=== PATIENT | female | born 1965 | race Caucasian/White ===

== ENCOUNTER → 2020-09-23 09:15 | Outpatient (BNVA) | payer SELFPAY | PROVIDERS: PCP Nurse Practitioner Family; Visit Provider Nurse Practitioner Family | DX: Z13.6 Encounter for screening for cardiovascular disorders (principal); R55 Syncope and collapse; I25.2 Old myocardial infarction | CPT/HCPCS: 80053; 80061; 84443; 85025 ==

== ENCOUNTER 2020-11-10 18:35 | Observation (INO) | payer SELFPAY ==
[2020-11-10 18:52] VITALS: BP 117/77; PULSE 81; RESP 20; TEMP 36.9; O2SAT 100; BMI 23.1
--- NOTE | 2020-11-10 19:35 | CTR_ITS ---
PROCEDURE INFORMATION: Exam: CT Head Without Contrast Exam date and time: 11/10/2020 7:35 PM Age: 54 years old Clinical indication: Syncope and collapse; Additional info: Fall TECHNIQUE: Imaging protocol: Computed tomography of the head without contrast. Radiation optimization: All CT scans at this facility use at least one of these dose optimization techniques: automated exposure control; mA and/or kV adjustment per patient size (includes targeted exams where dose is matched to clinical indication); or iterative reconstruction. COMPARISON: No relevant prior studies available. RADIATION DOSE METRICS: Total DLP (mGy-cm): 828.66 FINDINGS: Brain: Normal. No hemorrhage. Unremarkable white matter. No mass effect. Cerebral ventricles: No ventriculomegaly. Paranasal sinuses: Visualized sinuses are unremarkable. No fluid levels. Mastoid air cells: Visualized mastoid air cells are well aerated. Bones/joints: Unremarkable. No acute fracture. Soft tissues: Unremarkable. CT/CT head wo con* [id number] IMPRESSION: Negative for intracranial hemorrhage or mass effect. Radiation Dose CTDIVOL = (mGy): DLP = 828.66 (mGy-cm)
--- NOTE | 2020-11-10 19:35 | CTR_ITS ---
PROCEDURE INFORMATION: Exam: CT Cervical Spine Without Contrast Exam date and time: 11/10/2020 7:35 PM Age: 54 years old Clinical indication: Injury or trauma; Other: Syncope with collapse; Blunt trauma; Additional info: Fall TECHNIQUE: Imaging protocol: Computed tomography images of the cervical spine without contrast. Radiation optimization: All CT scans at this facility use at least one of these dose optimization techniques: automated exposure control; mA and/or kV adjustment per patient size (includes targeted exams where dose is matched to clinical indication); or iterative reconstruction. COMPARISON: CT facial bones wo con* [id number] 11/10/2020 7:48 PM RADIATION DOSE METRICS: Total DLP (mGy-cm): 407.33 FINDINGS: Vertebrae: Grade 1 retrolisthesis of C4 relative to C3 is likely chronic and degenerative. Small defect in the anterior aspect of the left C1 vertebral foramen with smooth borders is likely chronic and degenerative in nature. C2-C3: No significant disc protrusion. No severe spinal canal stenosis. No significant neural foraminal narrowing. C3-C4: No significant disc protrusion. No severe spinal canal stenosis. No significant neural foraminal narrowing. C4-C5: No significant disc protrusion. No severe spinal canal stenosis. No significant neural foraminal narrowing. C5-C6: No significant disc protrusion. No severe spinal canal stenosis. No significant neural foraminal narrowing. C6-C7: No significant disc protrusion. No severe spinal canal stenosis. No significant neural foraminal narrowing. C7-T1: No significant disc protrusion. No severe spinal canal stenosis. No significant neural foraminal narrowing. Soft tissues: Poorly characterized diffuse enlargement of the left thyroid gland measuring up to 3.4 cm concerning for an underlying mass with some rightward deviation of the trachea. Lungs: Lung apices are normal. CT/CT cervical spin wo con* [id number] IMPRESSION: 1. Negative for acute fracture or dislocation. 2. Grade 1 retrolisthesis of C4 relative to C3 is likely chronic and degenerative. 3. Poorly characterized diffuse enlargement of the left thyroid gland measuring up to 3.4 cm concerning for an underlying mass with some rightward deviation of the trachea. Further evaluation with non-emergent thyroid ultrasound is recommended. 4. Small defect in the anterior aspect of the left C1 vertebral foramen with smooth borders is likely chronic and degenerative in nature. Radiation Dose CTDIVOL = (mGy): DLP = 407.33 (mGy-cm)
--- NOTE | 2020-11-10 19:35 | CTR_ITS ---
PROCEDURE INFORMATION: Exam: CT Maxillofacial Without Contrast Exam date and time: 11/10/2020 7:35 PM Age: 54 years old Clinical indication: Injury or trauma; Other: Syncope and collapse; Blunt trauma (contusions or hematomas); Orbit/periorbital; Left; Additional info: Fall TECHNIQUE: Imaging protocol: Computed tomography images of the face without contrast. Radiation optimization: All CT scans at this facility use at least one of these dose optimization techniques: automated exposure control; mA and/or kV adjustment per patient size (includes targeted exams where dose is matched to clinical indication); or iterative reconstruction. COMPARISON: CT head wo con* [id number] 11/10/2020 7:46 PM RADIATION DOSE METRICS: Total DLP (mGy-cm): 683.67 FINDINGS: Orbital cavity: Orbits are normal. Globes are unremarkable. Bones/joints: No acute fracture. Paranasal sinuses: Normal. No air-fluid levels. Soft tissues: Unremarkable. CT/CT facial bones wo con* [id number] IMPRESSION: Negative for fracture or dislocation Radiation Dose CTDIVOL = (mGy): DLP = 683.67 (mGy-cm)
--- NOTE | 2020-11-10 19:39 | XRR_ITS ---
PROCEDURE INFORMATION: Exam: XR Chest Exam date and time: 11/10/2020 7:39 PM Age: 54 years old Clinical indication: Other: Syncope TECHNIQUE: Imaging protocol: XR of the chest. Views: 1 view. COMPARISON: CT abdomen pelvis w con* [id number] 11/22/2017 2:52 PM FINDINGS: Lungs: Hyperinflated lungs. No consolidation. Pleural spaces: Unremarkable. No pleural effusion. No pneumothorax. Heart/Mediastinum: Unremarkable. No cardiomegaly. Bones/joints: Unremarkable. XR/XR chest 1V portable [id number] IMPRESSION: No acute findings.
--- NOTE | 2020-11-10 19:41 | ED_ITS ---
Documented by User: Ramesh Chavez MD 11/10/20 22:16 HPI - Altered Mental Status General: Chief Complaint: Altered Mental Status Stated Complaint: head injury Time Seen by Provider: 11/10/20 19:33 History of Present Illness: HPI narrative: 54-year-old female history of CAD presents due to a forehead laceration after syncopal episode. Denies any prodrome. Denies any chest pain shortness of breath. Does report headache after the event due to her hitting her head but denies any pain in her head prior to the event. Does report some neck pain. Denies any vision change or focal numbness weakness or tingling. Denies any hearing change. States she has had previous syncopal episodes. Review of Systems Narrative: - CONSTITUTIONAL: Denies weight loss, fever and chills. - HEENT: Denies changes in vision and hearing. - RESPIRATORY: Denies SOB and cough. - CV: Denies palpitations and CP. - GI: Denies abdominal pain, nausea, vomiting and diarrhea. - : Denies dysuria and urinary frequency. - MSK: Denies myalgia and joint pain. - SKIN: Denies rash and pruritus. - NEUROLOGICAL: As above - PSYCHIATRIC: Denies suicidal ideation PFSH ED PFSH: Family History Family/Other Diabetes Social History Smoking and tobacco status: never smoked Second hand smoke exposure: No Smoking risk assessment/counseling performed?: Yes Desire information about alcohol rehabilitation?: No Counseling given: Yes Desire information about substance/drug rehabilitation?: No Counseling given: Yes Adopted: No Caregiver/support person: No Lives independently: Yes Household members: friend(s) Housing: House Marital status: Number of children: 2 Highest education level completed: GED or Equivalent service: No Current occupational status: unemployed Pets and animals: No History of recent travel: No Physical Exam Narrative: EXAM NARRATIVE: - GENERAL: Alert and oriented x 3. No acute distress. Well-nourished. - EYES: EOMI. Anicteric. - HENT: Frontal and periorbital ecchymosis, 2 cm laceration over the forehead along the nasal bridge. No signs of basal skull fracture, no nasal septal hematoma, no C-spine tenderness. Moist mucous membranes. No scleral icterus. No cervical lymphadenopathy. - LUNGS: Clear to auscultation bilaterally. No accessory muscle use. Equal lung sounds bilaterally. No respiratory distress. - CARDIOVASCULAR: Regular rate and rhythm. No murmur. No JVD. - ABDOMEN: Soft, non-tender and non-distended. Negative CVA tenderness bilaterally, no rebound or guarding, negative Borges sign. No palpable masses. - EXTREMITIES: No edema. Non-tender. - SKIN: No rashes or lesions. Warm. - NEUROLOGIC: No meningismus or focal neurological deficits. CN II-XII grossly intact. - PSYCHIATRIC: Cooperative. Appropriate mood and affect. Course Vital Signs: Vital signs: Vital Signs Temperature 98.4 F 11/10/20 18:52 Pulse Rate 72 11/10/20 20:20 Respiratory Rate 20 H 11/10/20 18:52 Blood Pressure 136/89 11/10/20 20:20 Pulse Oximetry 100 11/10/20 20:20 MDM - Altered Mental Status MDM Narrative: Medical decision making narrative: 54-year-old female with history of CAD presents due to a syncopal episode. She hit her head on ice cream machine. Does have a small facial laceration which was repaired using Dermabond. CT scan of the head C-spine and facial bones not revealing acute fracture dislocation intracranial hemorrhage or other acute abnormality. X-ray of the chest is unremarkable. EKG does reveal Q waves and signs of remote ischemia with no sign of acute ischemia. However she states that she has had several syncopal episodes recently. Remainder of lab work is unremarkable except for an elevated D-dimer. CT is pending. Troponins are unremarkable. However due to repeat syncopal episode I do believe she would benefit from admission for syncope work-up. Remainder of lab work and imaging reviewed. Discussed with hospitalist and they agreed patient would benefit from admission. Patient admitted in stable condition. Further evaluation management per hospitalist team. Lab Data: Labs: Lab Results 11/10/20 11/10/20 11/10/20 20:10 20:10 20:10 WBC 5.2 10^3/uL 10^3/ uL (4.0-10.0) RBC 4.58 10^6/uL 10^6 /uL (4.1-5.3) Hgb 13.5 g/dL g/dL (11.5-15.3) Hct 42.5 % % (37.0-47.0) MCV 92.8 fl fl (81-99) MCH 29.5 pg pg (28.0-34.0) MCHC 31.8 g/dL g/dL (30.0-36.0) RDW 13.2 % % (12.1-15.1) Plt Count 127 10^3/cmm L 10 ^3/cmm (130-400) MPV 10.8 fL H fL (7.4-10.4) Neut % (Auto) 68.1 % % Lymph % (Auto) 24.6 % % [place] % (Auto) 5.0 % % Eos % (Auto) 1.7 % % Baso % (Auto) 0.4 % % Neut # (Auto) 3.57 10^3/uL 10^3 /uL (1.8-7.7) Lymph # (Auto) 1.3 10^3/uL 10^3/ uL (0.8-4.8) [place] # (Auto) 0.3 10^3/uL 10^3/ uL (0.2-0.9) Eos # (Auto) 0.1 10^3/uL 10^3/ uL (0.0-0.8) Baso # (Auto) 0.0 10^3/uL 10^3/ uL (0.0-0.1) Nucleated RBC % (a uto) 0 % % Nucleated RBCs # 0.0 /100WBC /100W BC PT 14.40 SECONDS SEC ONDS (12.1-14.9) INR 1.08 (0.8-1.2) APTT 26.3 SECONDS SECO NDS (23.9-36.7) D-Dimer 1.03 ug/mIFEU H u g/mIFEU (0-0.59) Sodium 139 mmol/L mmol/L (136-145) Potassium 3.7 mmol/L mmol/L (3.5-5.1) Chloride 101 mmol/L mmol/L (98-107) Carbon Dioxide 25 mmol/L mmol/L (22-29) Anion Gap 16.7 (5-19) BUN 7 mg/dL mg/dL (6-20) Creatinine 0.6 mg/dL mg/dL (0.5-0.9) GFR Calculation 103.8 mL/min mL/m in (90-130) Glucose 81 mg/dL mg/dL (65-115) Calculated Osmolal ity 285 mOsm/kg mOsm/ kg (285-295) Calcium 9.4 mg/dL mg/dL (8.5-10.5) Total Bilirubin 0.4 mg/dL mg/dL (0.15-1.2) AST 16 U/L U/L (0-32) ALT 12 U/L U/L (0-33) Alkaline Phosphata se 72 IU/L IU/L (35-105) Troponin T Baselin e NT-Pro-B Natriuret Pep 99 pg/mL pg/mL (0-125) Total Protein 7.0 g/dL g/dL (6.6-8.7) Albumin 4.2 g/dL g/dL (3.5-5.2) Globulin 2.8 g/dL g/dL (1.3-4.6) TSH 0.70 uIU/mL uIU/m L (0.27-4.20) 11/10/20 20:10 WBC RBC Hgb Hct MCV MCH MCHC RDW Plt Count MPV Neut % (Auto) Lymph % (Auto) [place] % (Auto) Eos % (Auto) Baso % (Auto) Neut # (Auto) Lymph # (Auto) [place] # (Auto) Eos # (Auto) Baso # (Auto) Nucleated RBC % (a uto) Nucleated RBCs # PT INR APTT D-Dimer Sodium Potassium Chloride Carbon Dioxide Anion Gap BUN Creatinine GFR Calculation Glucose Calculated Osmolal ity Calcium Total Bilirubin AST ALT Alkaline Phosphata se Troponin T Baselin e 8 ng/L ng/L (0-10) NT-Pro-B Natriuret Pep Total Protein Albumin Globulin TSH EKG Data^: EKG 1: Other EKG comments: Sinus rhythm, rate of 65, there are anterior T wave inversions and Q waves, likely representing remote ischemia with no sign of acute ischemia or other acute abnormality. 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 Fwd Documented by User: MARCY Mahmood 11/10/20 20:14 HPI - Altered Mental Status General: Chief Complaint: Altered Mental Status Stated Complaint: head injury Time Seen by Provider: 11/10/20 19:33 PFSH ED PFSH: Family History Family/Other Diabetes Social History Smoking and tobacco status: never smoked Second hand smoke exposure: No Smoking risk assessment/counseling performed?: Yes Desire information about alcohol rehabilitation?: No Counseling given: Yes Desire information about substance/drug rehabilitation?: No Counseling given: Yes Adopted: No Caregiver/support person: No Lives independently: Yes Household members: friend(s) Housing: House Marital status: Number of children: 2 Highest education level completed: GED or Equivalent service: No Current occupational status: unemployed Pets and animals: No History of recent travel: No Procedures Laceration Laceration 1: Site: face Size (cm): 2.5 Description: irregular Depth: simple, single layer Pre-repair: wound explored and irrigated extensively Skin layer closed with: other (skin adhesive) Course Vital Signs: Vital signs: Vital Signs Temperature 98.4 F 11/10/20 18:52 Pulse Rate 72 11/10/20 20:20 Respiratory Rate 20 H 11/10/20 18:52 Blood Pressure 136/89 11/10/20 20:20 Pulse Oximetry 100 11/10/20 20:20 MDM - Altered Mental Status Lab Data: Labs: Lab Results 11/10/20 11/10/20 11/10/20 20:10 20:10 20:10 WBC 5.2 10^3/uL 10^3/ uL (4.0-10.0) RBC 4.58 10^6/uL 10^6 /uL (4.1-5.3) Hgb 13.5 g/dL g/dL (11.5-15.3) Hct 42.5 % % (37.0-47.0) MCV 92.8 fl fl (81-99) MCH 29.5 pg pg (28.0-34.0) MCHC 31.8 g/dL g/dL (30.0-36.0) RDW 13.2 % % (12.1-15.1) Plt Count 127 10^3/cmm L 10 ^3/cmm (130-400) MPV 10.8 fL H fL (7.4-10.4) Neut % (Auto) 68.1 % % Lymph % (Auto) 24.6 % % [place] % (Auto) 5.0 % % Eos % (Auto) 1.7 % % Baso % (Auto) 0.4 % % Neut # (Auto) 3.57 10^3/uL 10^3 /uL (1.8-7.7) Lymph # (Auto) 1.3 10^3/uL 10^3/ uL (0.8-4.8) [place] # (Auto) 0.3 10^3/uL 10^3/ uL (0.2-0.9) Eos # (Auto) 0.1 10^3/uL 10^3/ uL (0.0-0.8) Baso # (Auto) 0.0 10^3/uL 10^3/ uL (0.0-0.1) Nucleated RBC % (a uto) 0 % % Nucleated RBCs # 0.0 /100WBC /100W BC PT 14.40 SECONDS SEC ONDS (12.1-14.9) INR 1.08 (0.8-1.2) APTT 26.3 SECONDS SECO NDS (23.9-36.7) D-Dimer 1.03 ug/mIFEU H u g/mIFEU (0-0.59) Sodium 139 mmol/L mmol/L (136-145) Potassium 3.7 mmol/L mmol/L (3.5-5.1) Chloride 101 mmol/L mmol/L (98-107) Carbon Dioxide 25 mmol/L mmol/L (22-29) Anion Gap 16.7 (5-19) BUN 7 mg/dL mg/dL (6-20) Creatinine 0.6 mg/dL mg/dL (0.5-0.9) GFR Calculation 103.8 mL/min mL/m in (90-130) Glucose 81 mg/dL mg/dL (65-115) Calculated Osmolal ity 285 mOsm/kg mOsm/ kg (285-295) Calcium 9.4 mg/dL mg/dL (8.5-10.5) Total Bilirubin 0.4 mg/dL mg/dL (0.15-1.2) AST 16 U/L U/L (0-32) ALT 12 U/L U/L (0-33) Alkaline Phosphata se 72 IU/L IU/L (35-105) Troponin T Baselin e NT-Pro-B Natriuret Pep 99 pg/mL pg/mL (0-125) Total Protein 7.0 g/dL g/dL (6.6-8.7) Albumin 4.2 g/dL g/dL (3.5-5.2) Globulin 2.8 g/dL g/dL (1.3-4.6) TSH 0.70 uIU/mL uIU/m L (0.27-4.20) 11/10/20 20:10 WBC RBC Hgb Hct MCV MCH MCHC RDW Plt Count MPV Neut % (Auto) Lymph % (Auto) [place] % (Auto) Eos % (Auto) Baso % (Auto) Neut # (Auto) Lymph # (Auto) [place] # (Auto) Eos # (Auto) Baso # (Auto) Nucleated RBC % (a uto) Nucleated RBCs # PT INR APTT D-Dimer Sodium Potassium Chloride Carbon Dioxide Anion Gap BUN Creatinine GFR Calculation Glucose Calculated Osmolal ity Calcium Total Bilirubin AST ALT Alkaline Phosphata se Troponin T Baselin e 8 ng/L ng/L (0-10) NT-Pro-B Natriuret Pep Total Protein Albumin Globulin TSH Discharge Plan Discharge Prescriptions: No Action paroxetine HCl 20 mg tablet 20 mg PO .bedtime RF: 0 prazosin 1 mg capsule 1 mg PO .bedtime RF: 0 mirtazapine 30 mg tablet 30 mg PO DAILY RF: 0 potassium chloride [Klor-Con M20] 20 mEq tablet,ER particles/crystals 20 meq PO DAILY Qty: 30 RF: 0 Coding Level of Care Code ED 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
[2020-11-10] MEDS: tetanus-diphtheria tox (adult) 0.5 mL SDV IM (20:00)
[2020-11-10] MEDS: HYDROcodone-acetaminophen 5-325 mg Tablet 1 TAB PO (20:02)
[2020-11-10 20:19] LABS: Basophils % 0.4 %; Eosinophils # 0.1 10^3/uL (0.0-0.8); Eosinophils % 1.7 %; Hematocrit 42.5 % (37.0-47.0); Hemoglobin 13.5 g/dL (11.5-15.3); Lymphocytes # 1.3 10^3/uL (0.8-4.8); Lymphocytes % 24.6 %; Mean Corpuscular HGB Conc 31.8 g/dL (30.0-36.0); Mean Corpuscular Hemoglobin 29.5 pg (28.0-34.0); Mean Corpuscular Volume 92.8 fl (81-99); Mean Platelet Volume 10.8 fL (7.4-10.4); Monocytes # 0.3 10^3/uL (0.2-0.9); Neutrophils # 3.57 10^3/uL (1.8-7.7); Neutrophils % 68.1 %; Nucleated Red Blood Cells % 0 %; Platelet Count 127 10^3/cmm (130-400); Red Blood Count 4.58 10^6/uL (4.1-5.3); Red Cell Distribution Width 13.2 % (12.1-15.1); White Blood Count 5.2 10^3/uL (4.0-10.0)
[2020-11-10 20:20] VITALS: BP 136/89; PULSE 72; O2SAT 100
[2020-11-10 20:42] LABS: INR 1.08 (0.8-1.2)
[2020-11-10 20:43] LABS: Partial Thromboplastin Time 26.3 SECONDS (23.9-36.7)
[2020-11-10 20:45] LABS: D Dimer 1.03 ug/mIFEU (0-0.59)
[2020-11-10 20:48] LABS: Troponin(5th) Baseline 8 ng/L (0-10)
[2020-11-10 20:55] LABS: Alanine Aminotransferase 12 U/L (0-33); Albumin Level 4.2 g/dL (3.5-5.2); Alkaline Phosphatase 72 IU/L (35-105); Anion Gap 16.7 (5-19); Aspartate Amino Transferase 16 U/L (0-32); Blood Urea Nitrogen 7 mg/dL (6-20); Calcium 9.4 mg/dL (8.5-10.5); Carbon Dioxide 25 mmol/L (22-29); Chloride 101 mmol/L (98-107); Globulin 2.8 g/dL (1.3-4.6); Glomerular Filtration Rate 103.8 mL/min (90-130); Glucose 81 mg/dL (65-115); NT Pro B Type Natriuretic Pept 99 pg/mL (0-125); Osmolality Calculated 285 mOsm/kg (285-295); Potassium 3.7 mmol/L (3.5-5.1); Sodium 139 mmol/L (136-145); Total Bilirubin 0.4 mg/dL (0.15-1.2)
--- NOTE | 2020-11-10 21:00 | CTR_ITS ---
PROCEDURE INFORMATION: Exam: CTA Chest With Contrast Exam date and time: 11/10/2020 9:00 PM Age: 54 years old Clinical indication: Abnormal findings; Abnormal diagnostic tests; Elevated d-dimer; Patient HX: Syncope and collapse today. Left eye hematoma; Additional info: Pe TECHNIQUE: Imaging protocol: Computed tomographic angiography of the chest with contrast. 3D rendering (Not supervised by radiologist): MIP and/or 3D reconstructed images were created by the technologist. Radiation optimization: All CT scans at this facility use at least one of these dose optimization techniques: automated exposure control; mA and/or kV adjustment per patient size (includes targeted exams where dose is matched to clinical indication); or iterative reconstruction. Contrast material: OMNI 350; Contrast volume: 76 ml; Contrast route: INTRAVENOUS (IV); COMPARISON: No relevant prior studies available. RADIATION DOSE METRICS: Total DLP (mGy-cm): 548.7 FINDINGS: Pulmonary arteries: No definite filling defect to suggest the diagnosis of acute pulmonary embolus. Aorta: No evidence of thoracic aortic dissection or focal aneurysm. Thyroid: Enlargement of the thyroid gland, especially the left lobe which measures up to 5-6 cm in diameter. The left lobe extends into a retrosternal position. Inhomogeneous appearance of the thyroid gland, with several small calcifications present. Multiple thyroid nodules are likely present, possibly measuring up to 15-20 mm. Non-emergent ultrasound could be useful for further evaluation, as an initial step to evaluate for possible malignancy. Lungs: No significant parenchymal lung opacity or mass. Pleural spaces: No pleural fluid. Heart: Mild cardiomegaly. Mediastinal space: No evidence for pneumomediastinum or pneumothorax. There may be some mucosal/wall thickening involving the lower esophagus. This is nonspecific, but could represent evidence for esophagitis. Lymph nodes: Small calcified lymph nodes in the right hilar and right subcarinal region. There are several borderline prominent lymph nodes in the upper left mediastinum, largest measures around 10-12 mm. Upper abdomen: Numerous calcified granulomas within the spleen. Slightly lobular liver margins might raise suspicion for cirrhosis. Please correlate clinically. Images that include the upper abdomen otherwise appear essentially unremarkable for age. Bones/joints: Mild to moderate degenerative disc changes throughout the thoracic spine. Soft tissues: No significant acute finding. CT/CT angio chest PE protcl [id number] IMPRESSION: 1. No evidence of acute pulmonary embolus. 2. No evidence of thoracic aortic dissection or focal aneurysm. 3. Essentially clear lungs, no pleural fluid. 4. Possibly some thickening of the lower esophagus, see above discussion. 5. Prominent enlargement of the left lobe of the thyroid gland, see additional details/discussion above 6. Other findings discussed above. COMMENTS: Consistent with the [employer]'s Incidental Findings Committee white paper (J Am Sarah Radiol 2015): In patients aged 35 years and older with an incidental thyroid nodule equal to or greater than 1.[address], MRI or extrathyroidal US, further evaluation with dedicated thyroid US is recommended for patients with normal life expectancy and without comorbidities. For smaller nodules without suspicious features, no further evaluation or follow up is recommended. Radiation Dose CTDIVOL = (mGy): DLP = 548.7 (mGy-cm)
--- NOTE | 2020-11-10 21:38 | ECG_ITS ---
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[id number] Requested By: Ramesh Chavez Order Number: [id number] Reading MD: HELLEN AGUIRRE Measurements Intervals [place] Rate: 65 P: 18 KS: 169 QRS: -34 QRSD: 77 T: 23 QT: 367 QTc: 382 Interpretive Statements SINUS RHYTHM LEFT AXIS DEVIATION [QRS AXIS < -30] LOW QRS VOLTAGE IN PRECORDIAL LEADS [QRS DEFLECTION < 1.0 mV IN CHEST LEADS] POSSIBLE ANTERIOR MYOCARDIAL INFARCTION , OF INDETERMINATE AGE [30 ms Q WAVE IN V3/V4, OR R < 0.2 mV IN V4] Compared to ECG 11/22/2017 21:13:29 Left-axis deviation now present Myocardial infarct finding still present Electronically Signed On 11-11-2020 20:04:04 CDT by HELLEN AGUIRRE [id number]
[2020-11-10] MEDS: iohexol 350 mg/mL 100 mL Btl IV (22:19)
[2020-11-10 22:28] VITALS: PULSE 67; O2SAT 99
[2020-11-10 23:13] LABS: Troponin 5 2HR 6.41 ng/L (0-10)
[2020-11-10 23:14] LABS: Troponin 5 2HR Delta -1.59 ABS# (0-10)
--- NOTE | 2020-11-10 23:32 | P.HP_ITS ---
Providers/Chief Complaint Admitting Physician: Lorena Perdomo MD Primary Care Provider: None Chief Complaint: head injury History of Present Illness Cassie Thompson is a 54 year old female who presented to the emergency room after a syncopal episode while at work. She works at the [employer] in [place]. She was standing near the ice cream machine when she recalls becoming dizzy. Next thing she knows she came to on the floor. She had hit her head on the ice cream machine. EMS was called and evaluated her. She came in by private vehicle. She had a laceration to her forehead. It was cleaned and glued in the emergency room. She does not recall any other preceding symptoms besides the dizziness. She denies any position change right before becoming dizzy. No reports of any chest pain. No numbness or tingling, no vision changes, no speech changes. No reported abnormal movements. No loss of bowel or bladder function. She did lose consciousness but it sounds like it was just for short period of time. She has not had any nausea or vomiting. She does complain of a headache. She reports she ate before she went to work and that she had sampled an ice cream along with another colleague an hour or so before this event. No reported low blood sugar at the scene. Work-up in the emergency room revealed nonspecific EKG changes and enlargement of the left lobe of the thyroid but was otherwise unremarkable. She has a brother and a sister who in her sleep. Both were older, her brother was mid 60s and presumably had a heart attack. She herself has no history of coronary artery disease, hypertension, hyperlipidemia, diabetes but admits that she does not go to the doctor regularly. She does not have a primary care provider. She has had some palpitations at times but attributes that to anxiety. Last week at work had an episode of some mild dizziness with position changes that did not result in syncope. In September she had an episode in which she woke up in the middle the night on the floor and does not know what happened. She remembers getting up to go to the bathroom, using the bathroom and apparently never made it back to her bed. She currently denies other episodes of syncope. She has never had any type of work-up for such. She was seen at the clinic in [place] after the prior episode of waking up having apparently had an episode of loss of consciousness during the night. At that time symptoms were attributed to medications. She had previously been prescribed prazosin, Paxil, potassium and mirtazapine. She reports not taking these medications since around the time of that visit. She was referred to cardiology for further evaluation due to several episodes of syncope described at that time which she now denies. She contacted the clinic but did not keep the appointment due to concerns over cost. She has continued to have issues with depression and anxiety due to excessive life stressors but she has been trying to get herself back on her feet. She started her job at [employer] a couple of weeks ago and is working on trying to find a place of her own to live. She is currently staying with a friend. Denies any alcohol, tobacco or drug use. No recent fever or chills. No upper respiratory symptoms. No cough. No GI symptoms. No urinary symptoms. She occasionally has numbness in her fingertips but denies any other neurological symptoms. She received Covid vaccination, 2 dose series last spring. Review of Systems Const: Denies: fever(s) or chills Eyes: Reports: eye discomfort (Since event pain around the eye but not the eye itself); Denies: change in vision ENMT: Denies: throat pain or nasal congestion Card: Denies: chest pain, palpitations or edema Resp: Denies: dyspnea, productive cough or non-productive cough GI: Denies: abdominal pain, nausea, vomiting, diarrhea or constipation : Denies: difficulty voiding Musc: Reports: neck pain (From acute event today) Skin/Breast: Denies: rash or sores Neuro: Reports: headache(s) and dizziness (Prior to episode today and once last week as described); Denies: numbness in extremities, weakness in extremities, sensory changes, difficulty walking, Slurred speech present or involuntary movements Psych: Reports: anxiety and depression; Denies: suicidal ideation Endo: Reports: cold intolerance Dirk/Lymph: Denies: easy bruising or easy bleeding Medications/Allergies Home Medications Medication Instructions Recorded Confirmed Last Taken Type acetaminophen 650 mg PO QID PRN 11/11/20 11/11/20 11/08/20 History Allergies Allergy/AdvReac Type Severity Reaction Status Date / Time No Known Allergies Allergy Verified 10/06/20 09:10 PFSH Acute PFSH: Medical History (Updated 11/11/20 @ 01:34 by Lorena Perdomo MD) Anxiety History of depression History of skin cancer left chest, type unknown, removed History of stress test (~2016) No significant coronary ischemia identified Surgical History (Updated 11/11/20 @ 00:47 by Lorena Perdomo MD) Hx of tubal ligation Family History (Updated 11/11/20 @ 01:25 by Lorena Perdomo MD) Family/Other Diabetes CAD (coronary artery disease) Mother CAD (coronary artery disease) Brother CAD (coronary artery disease) Sudden in his sleep, mid 60s Sister Sudden in her sleep Social History (Updated 11/11/20 @ 01:23 by Lorena Perdomo MD) Smoking and tobacco status: never smoked Second hand smoke exposure: No Alcohol intake: former Substance/Drug Use: never Adopted: No Caregiver/support person: No Lives independently: Yes Household members: friend(s) Housing: House Marital status: Number of children: 2 Highest education level completed: GED or Equivalent service: No Current occupational status: employed Pets and animals: No History of recent travel: No Financial difficulty paying for basics: Very Hard Additional social history: Currently under probation, was incarcerated for 18 months released last year Vitals/I&O/Wt Last Vital Signs Temp 98.4 F 11/10/20 18:52 Pulse 67 11/10/20 22:28 Resp 20 H 11/10/20 18:52 BP 136/89 11/10/20 20:20 Pulse Ox 99 11/10/20 22:28 Weight last 48 hrs Weight 67.132 kg Physical Exam Narrative: EXAM NARRATIVE: Constitutional: Awake and alert, cooperative HEENT: Close laceration noted between the eyes on the frontal bone approximately 2-1/2 cm sealed with skin adhesive, mild surrounding bruising and erythema as well as some edema. Right periorbital area particularly below the eye is edematous and ecchymotic. There are scleral hemorrhages in the lower kiersten sphere. Globe moves freely without any pain demonstrated although region is tender to touch. Neck: Tender but supple Respiratory: Clear to auscultation bilaterally Cardiovascular: Regular rate and rhythm, no murmurs or rubs, 2+ pulses x4 Abdomen: Soft, nontender, positive bowel sounds Extremities: No pitting edema or acute synovitis, no calf tenderness Skin: Other than the bruising to face no other acute injuries noted, tattoo noted to ankle Neuro: Speech clear, extraocular movements are intact, pupils are equally reac tive, no photophobia, handgrip is equal, strength equal of both feet, gait not currently assessed, no dizziness elicited with arising from a supine to seated position or with head movements, no abnormal movements Psych: Normal affect, worried about her job given that this happened, admits to anxiety and depression being a issue for her but denies any suicidal thoughts and able to talk about the things that she has been doing to try to help herself, not able to recall information (specific timeframes, specific number of events, names of medications) for some questions but history otherwise obtainable from her Data : 11/10/20 20:10 11/10/20 20:10 Other Labs: Laboratory Results WBC 5.2 10^3/uL (4.0-10.0) 11/10/20 20:10 RBC 4.58 10^6/uL (4.1-5.3) 11/10/20 20:10 Hgb 13.5 g/dL (11.5-15.3) 11/10/20 20:10 Hct 42.5 % (37.0-47.0) 11/10/20 20:10 MCV 92.8 fl (81-99) 11/10/20 20:10 MCH 29.5 pg (28.0-34.0) 11/10/20 20:10 MCHC 31.8 g/dL (30.0-36.0) 11/10/20 20:10 RDW 13.2 % (12.1-15.1) 11/10/20 20:10 Plt Count 127 10^3/cmm (130-400) L 11/10/20 20:10 MPV 10.8 fL (7.4-10.4) H 11/10/20 20:10 Neut % (Auto) 68.1 % 11/10/20 20:10 Lymph % (Auto) 24.6 % 11/10/20 20:10 Flagler % (Auto) 5.0 % 11/10/20 20:10 Eos % (Auto) 1.7 % 11/10/20 20:10 Baso % (Auto) 0.4 % 11/10/20 20:10 Neut # (Auto) 3.57 10^3/uL (1.8-7.7) 11/10/20 20:10 Lymph # (Auto) 1.3 10^3/uL (0.8-4.8) 11/10/20 20:10 Flagler # (Auto) 0.3 10^3/uL (0.2-0.9) 11/10/20 20:10 Eos # (Auto) 0.1 10^3/uL (0.0-0.8) 11/10/20 20:10 Baso # (Auto) 0.0 10^3/uL (0.0-0.1) 11/10/20 20:10 Nucleated RBC % (auto) 0 % 11/10/20 20:10 Nucleated RBCs # 0.0 /100WBC 11/10/20 20:10 PT 14.40 SECONDS (12.1-14.9) 11/10/20 20:10 INR 1.08 (0.8-1.2) 11/10/20 20:10 APTT 26.3 SECONDS (23.9-36.7) 11/10/20 20:10 D-Dimer 1.03 ug/mIFEU (0-0.59) H 11/10/20 20:10 Sodium 139 mmol/L (136-145) 11/10/20 20:10 Potassium 3.7 mmol/L (3.5-5.1) 11/10/20 20:10 Chloride 101 mmol/L (98-107) 11/10/20 20:10 Carbon Dioxide 25 mmol/L (22-29) 11/10/20 20:10 Anion Gap 16.7 (5-19) 11/10/20 20:10 BUN 7 mg/dL (6-20) 11/10/20 20:10 Creatinine 0.6 mg/dL (0.5-0.9) 11/10/20 20:10 GFR Calculation 103.8 mL/min (90-130) 11/10/20 20:10 Glucose 81 mg/dL (65-115) 11/10/20 20:10 Calculated Osmolality 285 mOsm/kg (285-295) 11/10/20 20:10 Calcium 9.4 mg/dL (8.5-10.5) 11/10/20 20:10 Total Bilirubin 0.4 mg/dL (0.15-1.2) 11/10/20 20:10 AST 16 U/L (0-32) 11/10/20 20:10 ALT 12 U/L (0-33) 11/10/20 20:10 Alkaline Phosphatase 72 IU/L (35-105) 11/10/20 20:10 Troponin T Baseline 8 ng/L (0-10) 11/10/20 20:10 Troponin T 120 Minute 6.41 ng/L (0-10) 11/10/20 22:43 Delta Troponin T -1.59 ABS# (0-10) L 11/10/20 22:43 NT-Pro-B Natriuret Pep 99 pg/mL (0-125) 11/10/20 20:10 Total Protein 7.0 g/dL (6.6-8.7) 11/10/20 20:10 Albumin 4.2 g/dL (3.5-5.2) 11/10/20 20:10 Globulin 2.8 g/dL (1.3-4.6) 11/10/20 20:10 TSH 0.70 uIU/mL (0.27-4.20) 11/10/20 20:[address] 11/10/20 19:35 IMPRESSION: 1. Negative for acute fracture or dislocation. 2. Grade 1 retrolisthesis of C4 relative to C3 is likely chronic and degenerative. 3. Poorly characterized diffuse enlargement of the left thyroid gland measuring up to 3.4 cm concerning for an underlying mass with some rightward deviation of the trachea. Further evaluation with non-emergent thyroid ultrasound is recommended. 4. Small defect in the anterior aspect of the left C1 vertebral foramen with smooth borders is likely chronic and degenerative in nature. Radiation Dose CTDIVOL = (mGy): DLP = 407.33 (mGy-cm) Face CT 11/10/20 19:35 IMPRESSION: Negative for fracture or dislocation Radiation Dose CTDIVOL = (mGy): DLP = 683.67 (mGy-cm) Head CT 11/10/20 19:35 IMPRESSION: Negative for intracranial hemorrhage or mass effect. Radiation Dose CTDIVOL = (mGy): DLP = 828.66 (mGy-cm) Chest X-Ray 11/10/20 19:39 IMPRESSION: No acute findings. CTA Chest 11/10/20 21:00 FINDINGS: Pulmonary arteries: No definite filling defect to suggest the diagnosis of acute pulmonary embolus. Aorta: No evidence of thoracic aortic dissection or focal aneurysm. Thyroid: Enlargement of the thyroid gland, especially the left lobe which measures up to 5-6 cm in diameter. The left lobe extends into a retrosternal position. Inhomogeneous appearance of the thyroid gland, with several small calcifications present. Multiple thyroid nodules are likely present, possibly measuring up to 15-20 mm. Non-emergent ultrasound could be useful for further evaluation, as an initial step to evaluate for possible malignancy. Lungs: No significant parenchymal lung opacity or mass. Pleural spaces: No pleural fluid. Heart: Mild cardiomegaly. Mediastinal space: No evidence for pneumomediastinum or pneumothorax. There may be some mucosal/wall thickening involving the lower esophagus. This is nonspecific, but could represent evidence for esophagitis. Lymph nodes: Small calcified lymph nodes in the right hilar and right subcarinal region. There are several borderline prominent lymph nodes in the upper left mediastinum, largest measures around 10-12 mm. Upper abdomen: Numerous calcified granulomas within the spleen. Slightly lobular liver margins might raise suspicion for cirrhosis. Please correlate clinically. Images that include the upper abdomen otherwise appear essentially unremarkable for age. Bones/joints: Mild to moderate degenerative disc changes throughout the thoracic spine. Soft tissues: No significant acute finding. CT/CT angio chest PE protcl [id number] IMPRESSION: 1. No evidence of acute pulmonary embolus. 2. No evidence of thoracic aortic dissection or focal aneurysm. 3. Essentially clear lungs, no pleural fluid. 4. Possibly some thickening of the lower esophagus, see above discussion. 5. Prominent enlargement of the left lobe of the thyroid gland, see additional details/discussion above 6. Other findings discussed above. A&P Assessment and plan (1) Syncope: Has had more than one episode in the last 2 months in which she has had loss of consciousness. Initial episode had no preceding symptoms although she had gone to the bathroom shortly before passing out. This episode was preceded by dizziness. She describes intermittent brief palpitations that she has attributed to anxiety. Had one prior episode of dizziness clearly associated with position change but denies any position change preceding this episode today. First thought was some medications she had previously been on could be contributing but she states she has been off of the medications for more than a month. 1 of those medications did include paroxetine which she was on for some period of time. Dizziness and other symptoms can be associated with abrupt discontinuation but time since her last reported use as such I not think this is a contributing factor. She has 2 family members that in their sleep of unclear causes unexpectedly. One of them had known heart problems. She herself has no history of any known cardiac diagnoses. She had a stress test in 2016 that was unremarkable. Twelve-lead EKG with nonspecific changes suggestive of possible anterior myocardial infarction but this is unchanged from EKG back in 2018 that I was able to obtain. She denies any episodes of chest pain, significant orthopnea, PND, dyspnea on exertion. Differential diagnosis includes orthostasis which is not clearly apparent this time as it may have been the first time, medication effect although none is apparent today, arrhythmia which is my current primary concern, vasovagal episode for another cause, vascular process, among others. Status: Acute Qualifiers: Syncope type: unspecified Qualified Code(s): R55 - Syncope and collapse (2) Laceration of head: Closed with skin adhesive Status: Acute Qualifiers: Encounter type: initial encounter Location of open wound of head: other part of head Foreign body presence: without foreign body Qualified Code(s): S01.81XA - Laceration without foreign body of other part of head, initial encounter (3) Traumatic black eye of right side: With some surrounding edema and scleral blood noted Status: Acute Qualifiers: Encounter type: initial encounter Qualified Code(s): S00.11XA - Contusion of right eyelid and periocular area, initial encounter (4) Family history of sudden of unknown cause: With 2 siblings dying in their sleep Status: Acute (5) Nonspecific ST-T wave electrocardiographic changes: Similar to those seen on EKG from 2018 Status: Acute (6) Enlarged thyroid gland: With normal TSH Status: Acute Additional A&P Information Observation admission Serial neuro exams, monitoring for signs and symptoms of concussion Telemetry monitoring while here Continue serial cardiac enzymes Echocardiogram Check orthostatics Check urinalysis and urine test Pending results of above, consider Holter monitor/event monitor at discharge Received tetanus shot in the emergency room Laceration was closed with skin adhesive which will need to come off naturally Reviewed with patient concerning signs and symptoms of concussion/head injury including persistent nausea & vomiting, dizziness, headache apart from that related to her injuries and the like Patient will need thyroid ultrasound on a nonemergent basis outpatient I did discuss with her the enlargement of the left thyroid and nodules and need to evaluate the asymmetrical findings further to ensure no evidence of cancer, she expressed understanding inpatient services rn to assist given lack of insurance and primary care provider Discussed with patient gilberto application and using [facility] pharmacy for [facility] drug pricing when able as ways to assist with ongoing medical care May benefit from re-initiation of medications for anxiety and depression but given the acute issues will defer this to outpatient follow-up presently Supportive care otherwise Anticipate disposition home Will need arrangements for outpatient follow-up as does not currently have a PCP though she has seen Jyoti Hill in the past. Follow-up will need to include a nonemergent thyroid ultrasound. Findings, concerns and plans were discussed with patient and she was given an opportunity to ask questions Full code Attestations Medical Necessity Statement*: Currently anticipate a stay less than two midnights in a patient with a syncopal episode and other issues as described above. Plans are as indicated. 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
--- NOTE | 2020-11-11 01:04 | USCV_ITS ---
Jay Cassie Age: 54 Gender: F : 1965 Exam Date: 11/11/2020 11:58 Ordering Phys: Lorena Perdomo MD Technologist: Dinah Oneil Exam Location: [facility] [place] Indication: SYNCOPE BP: 121 / 70 HR: 70 Rhythm: Sinus Technical Quality: Adequate MEASUREMENTS (Male / Female) Normal Values 2D ECHO LV Diastolic Diameter PLAX 4.2 cm 4.2 - 5.9 / 3.9 - 5.3 cm LV Systolic Diameter PLAX 2.6 cm IVS Diastolic Thickness 1.0 cm 0.6 - 1.0 / 0.6 - 0.9 cm IVS Systolic Thickness 1.5 cm LVPW Diastolic Thickness 1.2 cm 0.6 - 1.0 / 0.6 - 0.9 cm LVPW Systolic Thickness 1.6 cm LVOT Diameter 2.0 cm LV Ejection Fraction 2D Teich 68.7 % LV Ejection Fraction MOD 2C 57.6 % LV Ejection Fraction 2C AL 57.9 % LA Diameter 3.4 cm LA Width 2.3 cm LA Height 3.0 cm RA Width 2.0 cm RA Height 3.3 cm Aorta at Sinotubular Diameter 2.2 cm M-MODE Aortic Annulus Diameter 1.9 cm LA Ao Ratio MM 1.8 MV E Point Septal Separation 0.3 cm DOPPLER AV Peak Velocity 110.0 cm/s LVOT Peak Velocity 73.0 cm/s AV Area Cont Eq vti 2.0 cm squared AV Area Cont Eq pk 2.1 cm squared MV Peak Velocity 101.0 cm/s MV Area PHT 4.2 cm squared Mitral E to A Ratio 1.0 MV E' Velocity 43.0 cm/s Mitral E to MV E' Ratio 5.6 Mitral E to LV E' Lateral Ratio 5.0 Mitral E to LV E' Septal Ratio 6.5 TR Peak Velocity 222.8 cm/s TR Peak Gradient 19.9 mmHg TR Mean Velocity 176.1 cm/s TR Mean Gradient 13.0 mmHg TR Velocity Time Integral 62.9 cm TV Peak E Velocity 51.0 cm/s Right Atrial Pressure 3.0 mmHg Pulmonary Artery Systolic Pressu 22.9 mmHg PV Peak Velocity 70.3 cm/s RV Acceleration Time 0.1 s RV Ejection Time 0.3 s RV AcT/ET 0.3 FINDINGS Left Ventricle Normal left ventricular size and systolic function, EF 62 %. No regional wall motion abnormalities. Right Ventricle The right ventricle is normal in size and function. Right Atrium The right atrium is normal in size. Left Atrium The left atrium is normal in size. Mitral Valve Trace mitral valve regurgitation. Aortic Valve No gross abnormalities noted Tricuspid Valve Trace tricuspid valve regurgitation. Pulmonic Valve No gross abnormalities noted Pericardium Normal pericardium without effusion. Aorta Normal ascending aorta dimension. CONCLUSIONS Normal left ventricular size and systolic function, EF 62 %. No regional wall motion abnormalities. Trace of mitral and tricuspid regurgitation. There is no pericardial effusion. There are no intracardiac masses. No previous study is available for comparison. Dr Hansa Dawson MD FACC (Electronically Signed) Final Date: 11 November 2020 14:25 S
[2020-11-11] MEDS: HYDROcodone-acetaminophen 5-325 mg Tablet 1 TAB PO (01:41)
[2020-11-11] MEDS: sodium chlor 0.9% + KCl 20 mEq 20 MEQ/1,000 ML BAG 75 MEQ IV (01:41)
[2020-11-11 02:43] LABS: Troponin 5 6HR 6.77 ng/L (0-10)
[2020-11-11 02:45] LABS: Troponin 5 6HR Delta -1.23 ng/L (0-12)
[2020-11-11 05:15] LABS: Urine Appearance Clear (CLEAR); Urine Color Yellow (Yellow)
[2020-11-11 05:16] LABS: Add Urine Culture? No; Add Urine Microscopic? YES; Bacteria Urine TRACE /hpf; Bilirubin Urine Neg (Negative); Blood Urine 2+ (Negative); Glucose Urine UA Norm (Normal); Ketones Urine Negative (Negative); Leukocyte Esterase Urine Trace (Negative); Nitrate Urine Negative (Negative); Protein Urine Neg (Negative); RBC Urine 0-4 /hpf (0-2); Specific Gravity, Urine 1.025 (1.005-1.030); Squamous Epithelial Cell Urine 0-4 /hpf (0-5); Urobilinogen Urine Norm (Negative); pH Urine 7 (5-7)
--- NOTE | 2020-11-11 06:59 | PC.NURSE ---
Pt lying R-side, appears to be asleep, breathing even and unlabored, vss, no needs identified at this time, will continue to monitor.
[2020-11-11 07:05] VITALS: BP 121/70; PULSE 75; RESP 15; O2SAT 97
[2020-11-11 10:48] VITALS: BP 115/76; BP 122/76; BP 124/77; PULSE 65; PULSE 67
[2020-11-11 13:27] VITALS: BP 123/72; PULSE 67; RESP 14; O2SAT 98
--- NOTE | 2020-11-11 21:54 | PM.DCS ---
Discharge Providers Date of Admission: 11/11/20 01:04 Date of Discharge: November 11, 2020 Attending Provider at Admission: Lorena Perdomo MD Attending Provider at Discharge: Andreas Madden Primary Care Provider: REBA Siu Diagnoses at Discharge Discharge Diagnosis (1) Syncope: Status: Acute Qualifiers: Syncope type: unspecified Qualified Code(s): R55 - Syncope and collapse (2) Laceration of head: Status: Acute Qualifiers: Encounter type: initial encounter Location of open wound of head: other part of head Foreign body presence: without foreign body Qualified Code(s): S01.81XA - Laceration without foreign body of other part of head, initial encounter (3) Traumatic black eye of right side: Status: Acute Qualifiers: Encounter type: initial encounter Qualified Code(s): S00.11XA - Contusion of right eyelid and periocular area, initial encounter (4) Family history of sudden of unknown cause: Status: Acute (5) Nonspecific ST-T wave electrocardiographic changes: Status: Acute (6) Enlarged thyroid gland: Status: Acute Reason for Visit Reason for Visit: head injury Hospital Course Hospital Course Pleasant 54-year-old lady was hospitalized for low preparation after a syncopal event with injury to the right side of her face with no visual impairment, with periorbital ecchymosis, laceration which was repaired with Dermabond in the ER, without acute changes on CT cervical spine but with incidentally noted diffuse enlargement of left thyroid gland up to 30.4 cm concerning for underlying mass with some rightward deviation of the trachea, discussed with the patient, otherwise facial CT, head CT chest x-ray chest CTA negative for acute findings. Possibly mild thickening of lower esophagus, again noted left thyroid lobe enlargement. She was monitored on telemetry in the hospital. Troponin EKG series completed without suggestion of acute OK. Some chronic changes noted on EKG. Orthostatic blood pressures were checked and were normal. She was feeling well without any recurrence of issues in the hospital. Since she was feeling well without any additional issues she wanted to return home. Echocardiogram was obtained, with finding of normal ejection fraction, no regional wall motion abnormalities, trace MVR and TVR, no pericardial effusion, no intracardiac masses. With history of 2 family members passing when they are asleep at discharge she is also set up with 21-day event monitor under supervision of Dr. Dawson. TSH was assessed and was normal. Given new finding of enlargement of left thyroid lobe, concerning for possible mass, she is referred for thyroid ultrasound. She is asked to follow-up with primary provider to further discuss test results and consider referral for additional testing, including possibly biopsy of the thyroid. Incidentally noted possible urinary tract infection with 5-10 WBC in urine, 0-4 squamous epithelial cells. Will complete course of antibiotic with cefdinir. She understands to return to the hospital in case of any concerning symptoms. With history of depression, anxiety she states her depression has been worse recently, she is asked to follow-up with [facility]. She denies any thoughts of self-harm or suicidal ideation, and states would seek medical attention immediately in case these arose. For now she is not initiated on any medical treatment at the moment given recent syncopal event of unexplained reason, however, this may be considered going forward in case no symptoms recur and no concerning etiology identified on cardiac monitoring. Physical Exam Const: COMMON NORMALS: no acute distress and patient oriented x3 HENMT: COMMON NORMALS: oropharynx normal Eye: OTHER: Right periorbital ecchymosis, mild swelling Neck/C-Spine: COMMON NORMALS: no JVD Resp: COMMON NORMALS: normal respiratory effort and clear to auscultation bilaterally AUSCULTATION: clear to auscultation bilaterally Cardio: COMMON NORMALS: no JVD, regular rhythm, S1 normal heart sound present, S2 normal heart sound present and No murmurs present (Cardio) RHYTHM: regular rhythm HEART SOUNDS: S1 normal heart sound present and S2 normal heart sound present GI: COMMON NORMALS: Normal to inspection, nondistended, normoactive bowel sounds present, Soft to palpation and non-tender PALPATION: Yes Soft to palpation Extremity: COMMON NORMALS: no joint enlargement and no pedal edema Neuro: COMMON NORMALS: patient oriented x3 and moves all extremities Skin: COMMON NORMALS: no rashes or lesions noted GENERAL SKIN EXAM: no rashes or lesions noted Discharge Data Data Completed and Pending: Completed Studies During Hospitalization Category Date Time Status CT angio chest PE protcl [id number] Urge nt Cat Scan 11/10/20 21:[address] cervical spin wo con* [id number] Urge nt Cat Scan 11/10/20 19:[address] facial bones w o con* [id number] Urgen t Cat Scan 11/10/20 19:[address] head wo con* 7 [id number] Urgent Cat Scan 11/10/20 19:35 Completed XR chest 1V sreeknath ble [id number] Stat Exams 11/10/20 19:39 Completed CV. echo complete * [id number] Routine Ultrasound 11/11/20 01:04 Completed Labs from last 24 hours 11/11/20 11/11/20 11/11/20 04:49 04:49 02:08 Troponin T 120 Min [place] Delta Troponin T Troponin T Hi Sens 6Hr 6.77 Troponin T Hi Sens 6Hr Delta -1.23 L Urine Color Yellow Urine Appearance Clear Urine pH 7 Ur Specific Gravit y 1.025 Urine Protein Neg Urine Glucose (UA) Norm Urine Ketones Negative Urine Blood 2+ H Urine Nitrate Negative Urine Bilirubin Neg Urine Urobilinogen Norm Ur Leukocyte Codi ase Trace H Urine RBC 0-4 H Urine WBC 5-10 H Ur Squamous Epith Cells 0-4 H Amorphous Sediment Not Reportable Urine Bacteria Trace Urine HCG, Qual Negative 11/10/20 22:43 Troponin T 120 Min [place] 6.41 Delta Troponin T -1.59 L Troponin T Hi Sens 6Hr Troponin T Hi Sens 6Hr Delta Urine Color Urine Appearance Urine pH Ur Specific Gravit y Urine Protein Urine Glucose (UA) Urine Ketones Urine Blood Urine Nitrate Urine Bilirubin Urine Urobilinogen Ur Leukocyte Codi ase Urine RBC Urine WBC Ur Squamous Epith Cells Amorphous Sediment Urine Bacteria Urine HCG, Qual Vitals: Last Vital Signs Temp 98.4 F 11/10/20 18:52 Pulse 67 11/11/20 13:27 Resp 14 11/11/20 13:27 BP 123/72 11/11/20 13:27 Pulse Ox 98 11/11/20 13:27 Discharge Plan Discharge Patient Disposition: Home Condition: Stable Prescriptions: New cefdinir 300 mg capsule 300 mg PO BID 5 Days Qty: 10 RF: 0 Continued acetaminophen 325 mg Tablet 650 mg PO QID PRN (Reason: Headache) RF: 0 Discharge Orders: Discharge Order (Routine); Ordered 11/11/20 Ordered By: Andreas Madden Other Ambulatory Orders: [place] cardiac event monitor (Routine) Timeframe: 1 Day Facility: [facility] - Location: Cardiac Diagnostic Laboratory Ordered By: Andreas Madden thyroid [id number] (Routine) Timeframe: 1 Week Facility: [facility] - Location: Radiology [facility] Ordered By: Andreas Madden Referrals: [facility] [Provider Group] - 1 week ([facility] [phone]. Please call to see what time you can come in to complete the initial assessment to be set up with services.) Jyoti Hill FNP-C [Primary Care Provider] - 11/14/20 9:00 am (Please call to reschedule this appointment at the [facility] if you are unable to attend. ) Patient Instructions: Urinary Tract Infection in Women (GEN), Syncope (GEN), Opioid Safety Activity Restrictions/Additional Instructions: Please follow-up with your primary doctor with regards to reassessment after episode of fainting. Reassessment of healing of the facial trauma. Please note that as it is her discussion echocardiogram result is not yet back, although the study has been obtained. You may be contacted regarding the results, but please follow-up with your primary doctor to discuss the final results. Please note you are also being set up for cardiac event monitoring for 21 days. Please follow-up with your primary doctor with regards to the final results. You are given an antibiotic course for urinary tract infection. Please follow-up with your primary doctor also with regards to enlargement of the left thyroid lobe. Thyroid ultrasound has been requested for you. Please follow-up with the study and discuss cost with your primary doctor to follow-up to final results and refer further for biopsy if needed. Please follow-up with behavioral health care with regards to anxiety, depression. In case depression gets worse or you develop any thoughts of self-harm or suicidal ideation seek medical attention immediately. Discharge Attestations Time Spent in Discharge Care*: greater than 30 min Quality Metrics Clinical Quality Measures During this hospital stay, did patient experience: None Coding Level of Care Code Acute Chg FW DC note Diagnoses Syncope R55 Syncope type: unspecified Laceration of head S01.81XA Encounter type: initial encounter Location of open wound of head: other part of head Foreign body presence: without foreign body Traumatic black eye of right side S00.11XA Encounter type: initial encounter Family history of sudden of unknown cause Z84.[address]-T wave electrocardiographic changes R94.31 Enlarged thyroid gland E04.9
== END 2020-11-11 14:30 | disposition home or self-care (01) ==
LOC: ER 23:17 → ER IP 11-11 01:07
PROVIDERS: Admitting Provider Hospitalist; Emergency Provider Emergency Medicine; PCP Nurse Practitioner Family; Visit Provider Internal Medicine
DX: R55 Syncope and collapse (principal); S01.81XA Laceration without foreign body of other part of head, initial encounter; S00.11XA Contusion of right eyelid and periocular area, initial encounter; W19.XXXA Unspecified fall, initial encounter; Z84.89 Family history of other specified conditions; R94.31 Abnormal electrocardiogram [ECG] [EKG]; E04.9 Nontoxic goiter, unspecified; Z82.49 Family history of ischemic heart disease and other diseases of the circulatory system
CPT/HCPCS: 36415; 70450; 70486; 71045; 71275; 72125; 80053; 81001; 81025; 83880; 84443; 84484; 85025; 85378; 85610; 85730; 90471; 90714; 93005; 93306; 96365; 99285; G0378; Q9967

== ENCOUNTER → 2020-11-14 09:51 | Outpatient (BNVA) | payer SELFPAY | PROVIDERS: PCP Nurse Practitioner Family; Visit Provider Nurse Practitioner Family | DX: R55 Syncope and collapse (principal); R94.31 Abnormal electrocardiogram [ECG] [EKG]; E04.9 Nontoxic goiter, unspecified; F41.9 Anxiety disorder, unspecified; F32.9 Major depressive disorder, single episode, unspecified; Z79.899 Other long term (current) drug therapy | CPT/HCPCS: 80053; 81000; 85025 ==

== ENCOUNTER → 2021-03-11 10:50 | Outpatient (BNVA) | payer OTHER, SELFPAY | PROVIDERS: PCP Nurse Practitioner Family; Visit Provider Nurse Practitioner Family | DX: Z20.822 Contact with and (suspected) exposure to COVID-19 (principal); R50.9 Fever, unspecified; R42 Dizziness and giddiness | CPT/HCPCS: 87635 ==